=== PATIENT | female | born 1985 | race Caucasian/White ===

== ENCOUNTER 2019-04-01 10:27 | Emergency (ER) | payer MEDICAID ==
[~2019-04-01] VITALS: Ht 162.6 cm; Wt 83.0 kg
[2019-04-01] MEDS ORDERED: normal saline 1000ML IV soln IVB ONE ×3 (11:50→12:35)
[2019-04-01] MEDS ORDERED: ondansetron/PF 4mg/2ml inj IV ONE (12:20)
[2019-04-01 12:30] LABS: HEMATOCRIT 29.1 % (35.0-45.0); HEMOGLOBIN 9.7 g/dl (12.0-16.0); MEAN CORPUSCULAR HEMOGLOBIN 31.2 PG (27.0-31.0); MEAN CORPUSCULAR HGB CONC 33.3 g/dL (33.0-36.5); MEAN CORPUSCULAR VOLUME 93.7 FL (78-98); MEAN PLATELET VOLUME 10.2 FL (7.4-10.4); PLATELET COUNT 141 X10'3 (140-440); RED CELL DISTRIBUTION WIDTH 13.6 % (11.5-14.5)
[2019-04-01 12:32] LABS: WHITE BLOOD COUNT 91.9 X10'3 (4.5-11.0)
[2019-04-01] MEDS ORDERED: LIDOcaine Viscous 15ml cup MM ONE (12:35)
[2019-04-01 12:44] LABS: MONOTEST NEGATIVE (Neg)
--- NOTE | 2019-04-01 12:49 | NUR ---
Collect strep throat swab, sent to lab.
[2019-04-01 12:56] LABS: ALANINE AMINOTRANSFERASE 29 U/L (12-78); ALBUMIN 2.6 G/DL (3.4-5.0); ALBUMIN/GLOBULIN RATIO 0.5 (1.1-1.5); ALKALINE PHOSPHATASE 89 IU/L (46-116); ANION GAP 10 (8-16); ASPARTATE AMINO TRANSFERASE 29 U/L (10-37); BILIRUBIN,TOTAL 0.7 MG/DL (0.1-1.0); BLOOD UREA NITROGEN 9 MG/DL (7-18); BUN/CREATININE RATIO 10.3 (6.6-38.0); CALCIUM 8.2 MG/DL (8.5-10.1); CHLORIDE 95 MMOL/L (99-107); CREATININE 0.87 MG/DL (0.40-0.90); GLUCOSE 100 MG/DL (70-104); SODIUM 134 MMOL/L (135-145); TOTAL CARBON DIOXIDE 28.8 MMOL/L (24-32); TOTAL PROTEIN 8.3 G/DL (6.4-8.2); eGFR 75 ML/MIN
[2019-04-01 12:58] LABS: CLARITY,URINE CLEAR (Clear); COLOR,URINE YELLOW (Yellow); GLUCOSE, URINE NEGATIVE (Neg); KETONES,URINE NEGATIVE (Neg); LEUKOCYTE ESTERASE ,URINE NEGATIVE (Neg); NITRITES, URINE NEGATIVE (Neg); OCCULT BLOOD,URINE LARGE (Neg); PROTEIN,URINE 30 mg/dl (Neg)
[2019-04-01 12:59] LABS: URINE HCG NEGATIVE (NEG)
[2019-04-01 13:03] LABS: UA COLLECTION TYPE CLN CATCH MIDSTREAM
[2019-04-01 13:13] LABS: BACTERIA,URINE 2+ /HPF (Neg); MUCUS STRANDS NONE SEEN /LPF (Neg); SQUAMOUS EPITHELIAL CELL,UR MODERATE /LPF (FEW)
[2019-04-01 13:14] LABS: WBC,URINE 20-30 /HPF (0-4)
[2019-04-01] MEDS ORDERED: potassium chloride 10mEq CAPSULE.SA PO ONE (13:20)
[2019-04-01] MEDS ORDERED: potassium Cl 20 mEq SR tablet PO ONE (13:20)
[2019-04-01 13:24] LABS: PLATELET ESTIMATE NORMAL; TOTAL CELLS COUNTED 100
--- NOTE | 2019-04-01 13:30 | NUR ---
Jm TAYLOR stated to discontinue the rest of the ordered NS bolus. patient had a total of 2200 mL IV.
[2019-04-01] MEDS ORDERED: POTASSIUM BICARB 20meq eff tab 20 MEQ TABLET.EFF PO ONE (13:35)
[2019-04-01] MEDS: potassium Cl 10 mEq/100mL bag IV ONE ×2 (13:38→13:55)
[2019-04-01 14:17] LABS: HIV ANTIBODY 1&2 RAPID NON-REACTIVE (Neg)
[2019-04-01 16:09] LABS: HEMATOCRIT 27.7 % (35.0-45.0); HEMOGLOBIN 9.2 g/dl (12.0-16.0); MEAN CORPUSCULAR HEMOGLOBIN 31.3 PG (27.0-31.0); MEAN CORPUSCULAR HGB CONC 33.1 g/dL (33.0-36.5); MEAN CORPUSCULAR VOLUME 94.5 FL (78-98); MEAN PLATELET VOLUME 8.1 FL (7.4-10.4); PLATELET COUNT 128 X10'3 (140-440); RED BLOOD COUNT 2.93 X10'6 (4.20-5.60)
[2019-04-01 16:10] LABS: WHITE BLOOD COUNT 80.4 X10'3 (4.5-11.0)
[2019-04-01 16:41] LABS: LARGE PLATELETS FEW; PLATELET ESTIMATE DECREASED; TOTAL CELLS COUNTED 100
[2019-04-01] MEDS ORDERED: SERT50TA PO (16:41)
[2019-04-01] MEDS ORDERED: CLIN150C2 PO (16:42)
[2019-04-01] MEDS ORDERED: normal saline 1000ml 1,000 ML IV ONE (17:43)
[2019-04-01] MEDS ORDERED: allopurinol 300 MG tablet PO ONE (17:45)
[2019-04-01 18:05] LABS: LACTATE DEHYDROGENASE 656 U/L (81-234); PHOSPHORUS 2.9 MG/DL (2.3-4.5)
[2019-04-01] MEDS ORDERED: diphenhydrAMINE 50 mg/ml inj IV ONE (18:20)
[2019-04-01] MEDS ORDERED: cefepime 1GM/NS ADD-VANTAGE 100 ML IV ONE (18:20)
[2019-04-01 18:31] LABS: PARTIAL THROMBOPLASTIN TIME 34 SECONDS (22-32)
[2019-04-01 18:48] VITALS: BP 111/61
[2019-04-02 09:22] LABS: POTASSIUM 2.9 MMOL/L (3.5-5.1)
== END 2019-04-01 19:20 | disposition short-term general hospital (02) ==
LOC: ER 10:28
DX: C95.00 Acute leukemia of unspecified cell type not having achieved remission (principal); Z88.1 Allergy status to other antibiotic agents; Z79.899 Other long term (current) drug therapy
CPT/HCPCS: 36415; 71045; 80053; 81001; 81025; 83605; 83615; 84100; 84145; 84550; 85025; 85384; 85610; 85730; 86308; 86703; 87040; 87081; 87088; 87502; 87503; 87880; 93005; 96365; 96375; 99291; 99292; J0692; J1200; J2405; J3480; J7030

== ENCOUNTER 2020-02-12 15:43 | Emergency (ER) | payer MEDICAID ==
[~2020-02-12] VITALS: Ht 162.6 cm; Wt 77.3 kg
[~2020-02-12 15:43] MED LIST: CLIN150C2 PO; SERT50TA PO
[2020-02-12] MEDS ORDERED: ondansetron/PF 4mg/2ml inj IV ONE ×2 (16:05→19:20)
[2020-02-12] MEDS ORDERED: cefepime 1GM in D5W 50mL 50 ML IV ONE (16:05)
[2020-02-12] MEDS ORDERED: normal saline 1000ML IV soln IV ONE (16:05)
[2020-02-12] MEDS ORDERED: cefepime 1GM/NS ADD-VANTAGE 100 ML IV ONE (16:15)
[2020-02-12] MEDS: morphine 4 MG/ML inj SYRINge IV PRN (16:23)
[2020-02-12 16:45] LABS: ALANINE AMINOTRANSFERASE 21 U/L (12-78); ALBUMIN/GLOBULIN RATIO 0.5 (1.1-1.5); ALKALINE PHOSPHATASE 81 IU/L (46-116); ANION GAP 16 (8-16); ASPARTATE AMINO TRANSFERASE 54 U/L (10-37); BILIRUBIN,TOTAL 1.9 MG/DL (0.1-1.0); BLOOD UREA NITROGEN 44 MG/DL (7-18); BUN/CREATININE RATIO 10.8 (6.6-38.0); CALCIUM 6.8 MG/DL (8.5-10.1); CHLORIDE 89 MMOL/L (99-107); CREATININE 4.09 MG/DL (0.40-0.90); GLUCOSE 191 MG/DL (70-104); POTASSIUM 3.5 MMOL/L (3.5-5.1); SODIUM 124 MMOL/L (135-145); TOTAL CARBON DIOXIDE 19.3 MMOL/L (24-32); TOTAL PROTEIN 5.9 G/DL (6.4-8.2); eGFR 13 ML/MIN
[2020-02-12 17:15] LABS: BANDS% (MANUAL) 4 % (0-10); GIANT PLATELET FEW; IMMATURE CELLS 35 % (0-0); LARGE PLATELETS FEW; LYMPHOCYTES % (MANUAL) 8 % (21-51); METAMYLEOCYTES% (MANUAL) 2 % (0-0); MONOCYTES % (MANUAL) 12 % (2-12); NEUTROPHILS % (MANUAL) 38 % (42-75); NUCLEATED RED BLOOD CELLS 15 /100WBC (0-0); PLATELET ESTIMATE DECREASED; PROMYELOCYTES % (MANUAL) 1 % (0-0); TOTAL CELLS COUNTED 200
[2020-02-12 17:19] LABS: HEMATOCRIT 35.7 % (35.0-45.0); HEMOGLOBIN 12.4 g/dl (12.0-16.0); MEAN CORPUSCULAR HEMOGLOBIN 31.1 PG (27.0-31.0); MEAN CORPUSCULAR HGB CONC 34.9 g/dL (33.0-36.5); MEAN CORPUSCULAR VOLUME 89.3 FL (78-98); MEAN PLATELET VOLUME 9.9 FL (7.4-10.4); PLATELET COUNT 115 X10'3 (140-440); RED CELL DISTRIBUTION WIDTH 15.4 % (11.5-14.5)
[2020-02-12 17:23] LABS: WHITE BLOOD COUNT 29.7 X10'3 (4.5-11.0)
[2020-02-12 17:25] LABS: POLYCHROMASIA FEW; SMUDGE CELLS 1+
[2020-02-12 17:27] LABS: BURR CELLS FEW; ELLIPTOCYTES FEW; MICROCYTOSIS FEW; SCHISTOCYTES FEW; SPHEROCYTES FEW
[2020-02-12 17:29] LABS: HYPOGRANULAR PLATELETS FEW
[2020-02-12] MEDS ORDERED: metroNIDAZOLE-Flagyl 500mg/NS 100 ML IV STA (17:31)
[2020-02-12] MEDS ORDERED: morphine 4 MG/ML inj SYRINge IV ONE (19:20)
[2020-02-12] MEDS ORDERED: ciprofloxacin lact 400MG/200ML 200 ML IV SCH (20:00)
--- NOTE | 2020-02-13 00:30 | NUR ---
CALLED [facility] AND THEY SAID THAT NO BEDS ARE GOING TO BE AVAILABLE UNTIL TOMORROW AT SOME POINT.
[2020-02-13] MEDS: morphine 4 MG/ML inj SYRINge IV PRN (00:49)
[2020-02-13] MEDS ORDERED: morphine 4 MG/ML inj SYRINge IV ONE (05:05)
[2020-02-13] MEDS ORDERED: ciprofloxacin lact 400MG/200ML 200 ML IV SCH (08:00)
--- NOTE | 2020-02-13 12:00 | NUR ---
PT SLEEPING, NO COMPLAINTS AT THIS TIME. WILL CONTINUE TO MONITOR
[2020-02-13 14:34] VITALS: BP 117/72
--- NOTE | 2020-02-13 14:35 | NUR ---
PROVIDED PT WITH JUICE AND ICE, STILL AWAITING TRANSPORT TO [facility]
[2020-02-13 14:41] LABS: HEMOGLOBIN 9.4 g/dl (12.0-16.0); RED CELL DISTRIBUTION WIDTH 15.7 % (11.5-14.5)
[2020-02-13 14:43] LABS: HEMATOCRIT 27.2 % (35.0-45.0); MEAN CORPUSCULAR HEMOGLOBIN 30.5 PG (27.0-31.0); MEAN CORPUSCULAR HGB CONC 34.5 g/dL (33.0-36.5); MEAN CORPUSCULAR VOLUME 88.6 FL (78-98); MEAN PLATELET VOLUME 10.2 FL (7.4-10.4); PLATELET COUNT 73 X10'3 (140-440); RED BLOOD COUNT 3.07 X10'6 (4.20-5.60)
[2020-02-13 14:48] LABS: WHITE BLOOD COUNT 38.4 X10'3 (4.5-11.0)
--- NOTE | 2020-02-13 14:59 | NUR ---
PT VOMITING, JAQUELINE MADRID MADE AWARE, RECEIVED ORDERS FOR PRN ZOFRAN
[2020-02-13] MEDS ORDERED: ondansetron/PF 4mg/2ml inj IV PRN (15:00)
[2020-02-13 15:41] LABS: NUCLEATED RED BLOOD CELLS 6 /100WBC (0-0); TOTAL CELLS COUNTED 100
[2020-02-13 15:42] LABS: PLATELET ESTIMATE DECREASED
[2020-02-13 15:43] LABS: ANISOCYTOSIS 1+
[2020-02-13 15:44] LABS: MICROCYTOSIS 1+; POLYCHROMASIA FEW
[2020-02-13 15:45] LABS: SCHISTOCYTES FEW
[2020-02-13] MEDS ORDERED: normal saline 1000ml 1,000 ML IV SCH (15:45)
[2020-02-13 15:59] LABS: CLARITY,URINE CLOUDY (Clear); COLOR,URINE YELLOW (Yellow); GLUCOSE, URINE 100 mg/dl (Neg); KETONES,URINE NEGATIVE (Neg); LEUKOCYTE ESTERASE ,URINE NEGATIVE (Neg); NITRITES, URINE NEGATIVE (Neg); OCCULT BLOOD,URINE MODERATE (Neg); PH,URINE 5.5 (4.8-8.0); PROTEIN,URINE >=300 mg/dl (Neg); UROBILINOGEN,URINE 0.2 E.U/dL (0.2-1.0)
[2020-02-13 16:00] LABS: UA COLLECTION TYPE STRAIGHT CATH
[2020-02-13] MEDS ORDERED: metroNIDAZOLE-Flagyl 500mg/NS 100 ML IV SCH (16:00)
[2020-02-13 16:09] LABS: AMORPHOUS URATES 4+
[2020-02-13 16:11] LABS: HYALINE CASTS 0-3 /LPF (NEGATIVE); TRANSITIONAL EPI CELLS,URINE MODERATE /HPF
[2020-02-13 16:12] LABS: BACTERIA,URINE FEW /HPF (Neg); FINE GRANULAR CAST 0-3 /LPF (NEGATIVE); RBC,URINE 0-2 /HPF (0-2); SQUAMOUS EPITHELIAL CELL,UR FEW /LPF (FEW); WBC,URINE 0-4 /HPF (0-4)
== END 2020-02-13 17:44 | disposition short-term general hospital (02) ==
LOC: ER 15:44
DX: K51.00 Ulcerative (chronic) pancolitis without complications (principal); E87.1 Hypo-osmolality and hyponatremia; D72.829 Elevated white blood cell count, unspecified; N17.9 Acute kidney failure, unspecified; Z85.6 Personal history of leukemia; R11.10 Vomiting, unspecified; Z90.49 Acquired absence of other specified parts of digestive tract; Z88.1 Allergy status to other antibiotic agents; Z79.899 Other long term (current) drug therapy
CPT/HCPCS: 36415; 71045; 74176; 80053; 81001; 83605; 84145; 85007; 85025; 87040; 93005; 96365; 96366; 96367; 96368; 96375; 96376; 99285; J0692; J0744; J2270; J2405; J3490; J7030